=== PATIENT | male | born 1980 | race Two or more races ===

== ENCOUNTER 2021-10-05 12:13 | Emergency (ER) | payer BC ==
[~2021-10-05] VITALS: Ht 200.7 cm; Wt 113.4 kg
== END 2021-10-05 15:57 | disposition home or self-care (01) ==
LOC: ER 12:13
DX: S01.01XA Laceration without foreign body of scalp, initial encounter (principal); W18.30XA Fall on same level, unspecified, initial encounter; Y93.E1 Activity, personal bathing and showering; Y92.012 Bathroom of single-family (private) house as the place of occurrence of the external cause; Y99.9 Unspecified external cause status